=== PATIENT | female | born 1985 | race Hispanic/Latino ===

== ENCOUNTER 2022-03-23 10:07 | Emergency (ER) | payer OTHER ==
[~2022-03-23] VITALS: Ht 160 cm; Wt 71.7 kg
[2022-03-23] MEDS ORDERED: KETOROLAC TROMETHAMINE 60 MG/2 ML VIAL IM ONE (11:00)
[2022-03-23] MEDS ORDERED: KETOROLAC TROMETHAMINE 30 MG/ML VIAL ONE (11:19)
[2022-03-23] MEDS ORDERED: NAPROSYN500 MG PO (12:11)
[2022-03-23] MEDS ORDERED: CYCLOBENZAPRINE10 MG PO (12:12)
== END 2022-03-23 12:22 | disposition home or self-care (01) ==
LOC: FSED 10:22
DX: R20.2 Paresthesia of skin (principal); M62.838 Other muscle spasm; R51.9 Headache, unspecified; M26.603 Bilateral temporomandibular joint disorder, unspecified
CPT/HCPCS: 70450; 81003; 81025; 96372; 99284; J1885

== ENCOUNTER 2022-03-28 21:12 | Emergency (ER) | payer OTHER ==
[~2022-03-28] VITALS: Ht 160 cm; Wt 71.7 kg
[~2022-03-28 21:12] MED LIST: CYCLOBENZAPRINE10 MG PO; NAPROSYN500 MG PO
== END 2022-03-29 00:14 | disposition home or self-care (01) ==
LOC: FSED 21:15
DX: M54.12 Radiculopathy, cervical region (principal); R25.2 Cramp and spasm
CPT/HCPCS: 80048; 80076; 81003; 81025; 85025; 99283

== ENCOUNTER 2022-10-18 20:15 | Emergency (ER) | payer OTHER ==
[~2022-10-18] VITALS: Ht 160 cm; Wt 68.0 kg
[2022-10-18] MEDS ORDERED: ONDANSETRON HCL INJ 2MG/ML 2ML 2 MG/ML VIAL IV STA (20:54)
[2022-10-18] MEDS ORDERED: SODIUM CHLORIDE 0.9% 1000ML 1,000 ML IV STA (20:54)
[2022-10-18] MEDS ORDERED: SODIUM CHLORIDE 0.9% 1000ML 1,000 ML ONE (21:26)
[2022-10-18] MEDS ORDERED: ONDANSETRON HCL INJ 2MG/ML 2ML 2 MG/ML VIAL ONE (21:26)
[2022-10-18] MEDS ORDERED: KETOROLAC TROME10 MG PO (23:01)
[2022-10-18] MEDS ORDERED: ONDANSETRON ODT4 MG PO (23:01)
[2022-10-18] MEDS ORDERED: IOPAMIDOL 370 MG/ML 100 ML INFUS..BTL INJ ONE (23:45)
== END 2022-10-18 23:13 | disposition home or self-care (01) ==
LOC: FSED 20:19
DX: R50.9 Fever, unspecified (principal); N83.201 Unspecified ovarian cyst, right side; R10.31 Right lower quadrant pain; K21.9 Gastro-esophageal reflux disease without esophagitis
CPT/HCPCS: 74177; 80053; 81003; 85025; 96374; 99284; J2405; J7030; Q9967

== ENCOUNTER 2023-02-16 07:43 | Emergency (ER) | payer OTHER ==
[~2023-02-16] VITALS: Ht 160 cm; Wt 71.2 kg
[~2023-02-16 07:43] MED LIST changes: +KETOROLAC TROME10 MG PO; +ONDANSETRON ODT4 MG PO
[2023-02-16 08:08] VITALS: O2SAT 100
[2023-02-16] MEDS ORDERED: KETOROLAC TROMETHAMINE 30 MG/ML VIAL ONE (08:28)
[2023-02-16] MEDS ORDERED: KETOROLAC TROMETHAMINE 60 MG/2 ML VIAL IM ONE (08:30)
[2023-02-16] MEDS ORDERED: CYCLOBENZAPRINE5 MG PO (09:14)
== END 2023-02-16 09:39 | disposition home or self-care (01) ==
LOC: FSED 07:52
DX: M54.41 Lumbago with sciatica, right side (principal); K21.9 Gastro-esophageal reflux disease without esophagitis
CPT/HCPCS: 74176; 99283; J1885

== ENCOUNTER 2024-05-20 10:52 | Emergency (ER) | payer OTHER ==
[~2024-05-20] VITALS: Ht 160 cm; Wt 69.0 kg
[~2024-05-20 10:52] MED LIST changes: +CYCLOBENZAPRINE5 MG PO
[2024-05-20 11:04] VITALS: PULSE 73; RESP 16; TEMP 98
[2024-05-20] MEDS ORDERED: IOPAMIDOL 370 MG/ML 100 ML INFUS..BTL INJ ONE (11:43)
[2024-05-20] MEDS: SODIUM CHLORIDE 0.9% 1000ML 1,000 ML IV STA (11:49)
[2024-05-20] MEDS: ONDANSETRON HCL INJ 2MG/ML 2ML 2 MG/ML VIAL IV STA (11:49)
[2024-05-20] MEDS: KETOROLAC TROMETHAMINE 30 MG/ML VIAL IV STA (11:49)
[2024-05-20] MEDS ORDERED: CIPRO500 MG PO (14:20)
[2024-05-20] MEDS ORDERED: ONDANSETRON ODT4 MG PO (14:21)
[2024-05-20] MEDS ORDERED: METRONIDAZOLE500 MG PO (14:21)
[2024-05-20] MEDS ORDERED: DICYCLOMINE HCL20 MG PO (14:22)
[2024-05-20 14:37] VITALS: BP 143/80; PULSE 79; RESP 18; TEMP 98.7; O2SAT 100
== END 2024-05-20 14:38 | disposition home or self-care (01) ==
LOC: FSED 11:04
DX: R10.31 Right lower quadrant pain (principal); K52.9 Noninfective gastroenteritis and colitis, unspecified; R93.89 Abnormal findings on diagnostic imaging of other specified body structures; M54.50 Low back pain, unspecified; G89.29 Other chronic pain; K21.9 Gastro-esophageal reflux disease without esophagitis
CPT/HCPCS: 74177; 80048; 80076; 81003; 81025; 85025; 99284; J1885; J2405; J7030; Q9967